=== PATIENT | female | born 1945 | race Caucasian/White ===

== ENCOUNTER 2020-04-19 12:37 | Inpatient (IN) ==
[2020-04-19] MEDS ORDERED: LACTATED RINGERS 1,000 ML IV ONE (13:28)
[2020-04-19 13:53] LABS: Basophils # 0.1 10*3/uL (0.0-0.2); Basophils % 0.3 % (0.0-0.8); Eosinophils # 0.1 10*3/uL (0.0-0.87); Eosinophils % 0.3 % (0.00-10.9); Hematocrit 28.8 VOL% (35.7-47.0); Immature Granulocytes % 1.7 %; Immature Granulocytes Absolute 0.34 #; Lymphocytes # 1.1 10*3/uL (1.4-4.0); Lymphocytes % 5.4 % (21.3-54.2); Mean Corpuscular HGB Conc 31.3 GM/DL (32-36); Mean Corpuscular Volume 98.6 FL (87-102); Mean Platelet Volume 9.5 FL (9.6-12.0); Neutrophils % 85.3 % (38.7-73.9); Platelet Count 353 T/CUMM (130-400); Red Blood Count 2.92 MC/CUMM (3.8-5.5); Red Cell Distribution Width 13.1 % (9.3-17.3); White Blood Count 20.5 T/CUMM (4-12)
[2020-04-19 14:17] LABS: Alanine Aminotransferase 29 U/L (13-56); Albumin 2.7 G/DL (3.4-5.0); Alkaline Phosphatase 141 U/L (45-117); Aspartate Amino Transferase 55 U/L (0-37); Bilirubin,Total < 0.39 MG/DL (0.2-1.0); Blood Urea Nitrogen 40 MG/DL (7-18); Calcium 8.5 MG/DL (8.5-10.1); Carbon Dioxide 19 MMOL/L (21-32); Estimated Glom Filtration Rate 15 ML/MIN; Glucose 85 MG/DL (74-106); Osmolality,Calculated 266.9 MOS/KG (273-304); Potassium 4.5 MMOL/L (3.5-5.1); Sodium 129 MMOL/L (136-145); Total Protein 7.1 G/DL (6.4-8.3)
[2020-04-19] MEDS ORDERED: LEVOFLOXACIN INJ 750 MG in PREMIX 1 EACH IV STA (14:24)
[2020-04-19 15:14] LABS: Bilirubin,Urine Negative (Negative); Blood, Urine Negative (Negative); Glucose,Urine (UA) Negative (Negative); Hyaline Casts,Urine 6 /LPF (0-3); Ketones,Urine 5 mg/dL (Negative); Mucus,Urine Occasional /LPF (Occasional); Nitrite,Urine Negative (Negative); Protein,Urine Negative; RBC,Urine <1 /HPF (0-4); Squamous Epithelial Cell,Urine Occasional /HPF (0-10); Urine Appearance Slightly Hazy (Clear); Urine Color Yellow (Yellow); Urine Specific Gravity 1.025 (1.001-1.035); Urine Urobilinogen < 2.0 EU/DL (0.2-1.0); WBC,Urine 1 /HPF (0-6)
[2020-04-19] MEDS ORDERED: DEXTROSE 50% 25 GM/50 ML VIAL IV PRN (15:40)
[2020-04-19] MEDS ORDERED: GLUCAGON 1 MG VIAL IM PRN (15:40)
[2020-04-19] MEDS ORDERED: HALOPERIDOL 5 MG/ML AMP IV STA (15:48)
[2020-04-19] MEDS ORDERED: WARFARIN 3 MG TABLET PO SCH (16:00)
[2020-04-19] MEDS ORDERED: ENOXAPARIN 30 MG/0.3 ML SYRINGE SUBCUT SCH (16:00)
[2020-04-19] MEDS ORDERED: ENOXAPARIN 30 MG/0.3 ML SYRINGE ONE (16:22)
[2020-04-19] MEDS: SODIUM CHLORIDE 0.9% 1,000 ML IV SCH (16:23)
[2020-04-19 16:27] LABS: PT Patient Result 94.4 SECS (9.8-11.9)
[2020-04-19 16:45] LABS: Lymphocytes 5 % (20-55); Segmented Neutrophils 92 % (50-85); Total Cells Counted 100
[2020-04-19] MEDS ORDERED: PHYTONADIONE 10 MG/1 ML AMP SUBCUT ONE (17:00)
[2020-04-19] MEDS: ACETAMINOPHEN 325 MG TABLET PO PRN ×2 (17:46→21:58)
[2020-04-19 18:33] LABS: Hematocrit 27.3 VOL% (35.7-47.0)
[2020-04-19] MEDS: rOPINIRole 1 MG TABLET PO SCH (21:23)
[2020-04-19] MEDS: AMITRIPTYLINE 75 MG TABLET PO SCH (21:23)
[2020-04-19] MEDS: PANTOPRAZOLE 40 MG TABLET PO SCH (21:23)
[2020-04-19] MEDS: METOPROLOL SUCCINATE XL 25 MG TABLET PO SCH (21:23)
[2020-04-19] MEDS: tiZANidine 4 MG TABLET PO SCH (21:24)
[2020-04-19 22:13] LABS: Hematocrit 26.7 VOL% (35.7-47.0); Hemoglobin 8.4 GM/DL (12.0-16.0)
[2020-04-19] MEDS: PIPERACILLIN/TAZOBACTAM 3,375 MG in SODIUM CHLORIDE 0.9% 100 ML IV SCH (22:21)
[2020-04-20] MEDS: SODIUM CHLORIDE 0.9% 1,000 ML IV SCH ×2 (05:58→19:35)
[2020-04-20] MEDS: ACETAMINOPHEN 325 MG TABLET PO PRN ×2 (05:59→21:53)
[2020-04-20 06:05] LABS: Basophils # 0.1 10*3/uL (0.0-0.2); Basophils % 0.2 % (0.0-0.8); Eosinophils % 0.1 % (0.00-10.9); Hematocrit 27.1 VOL% (35.7-47.0); Hemoglobin 8.3 GM/DL (12.0-16.0); Immature Granulocytes % 1.1 %; Immature Granulocytes Absolute 0.28 #; Lymphocytes # 1.1 10*3/uL (1.4-4.0); Lymphocytes % 4.4 % (21.3-54.2); Mean Corpuscular HGB Conc 30.6 GM/DL (32-36); Mean Corpuscular Volume 98.9 FL (87-102); Mean Platelet Volume 9.7 FL (9.6-12.0); Neutrophils % 86.2 % (38.7-73.9); Platelet Count 384 T/CUMM (130-400); Red Blood Count 2.74 MC/CUMM (3.8-5.5); Red Cell Distribution Width 13.4 % (9.3-17.3); White Blood Count 25.7 T/CUMM (4-12)
[2020-04-20 06:09] LABS: Hematocrit 25.8 VOL% (35.7-47.0); Hemoglobin 8.4 GM/DL (12.0-16.0)
[2020-04-20 06:30] LABS: Calcium 8.1 MG/DL (8.5-10.1); Osmolality,Calculated 272.4 MOS/KG (273-304); Potassium 4.1 MMOL/L (3.5-5.1)
[2020-04-20 06:32] LABS: Band Neutrophils 1 % (0-10); Hypochromasia Slight; Lymphocytes 5 % (20-55); Platelet Estimate Normal; Segmented Neutrophils 88 % (50-85); Total Cells Counted 100
[2020-04-20 07:54] LABS: INR 3.1; PT Patient Result 31.3 SECS (9.8-11.9)
[2020-04-20] MEDS: PIPERACILLIN/TAZOBACTAM 3,375 MG in SODIUM CHLORIDE 0.9% 100 ML IV SCH ×2 (09:44→22:03)
[2020-04-20] MEDS: tiZANidine 4 MG TABLET PO SCH ×2 (09:45→21:53)
[2020-04-20] MEDS: METOPROLOL SUCCINATE XL 25 MG TABLET PO SCH ×2 (09:45→21:52)
[2020-04-20] MEDS: PANTOPRAZOLE 40 MG TABLET PO SCH ×2 (09:45→21:52)
[2020-04-20] MEDS: AMITRIPTYLINE 75 MG TABLET PO SCH ×2 (09:46→21:51)
[2020-04-20] MEDS ORDERED: LOPERAMIDE 2 MG CAPSULE PO ONE (14:46)
[2020-04-20] MEDS ORDERED: LOPERAMIDE 2 MG CAPSULE PO PRN (14:46)
[2020-04-20] MEDS: ASPIRIN EC 81 MG TABLET PO SCH (15:17)
[2020-04-20] MEDS ORDERED: WARFARIN 4 MG TABLET PO SCH (15:35)
[2020-04-20] MEDS: rOPINIRole 1 MG TABLET PO SCH (21:52)
[2020-04-21] MEDS: VANCOMYCIN 50 MG/ML 60 ML/BOTTLE PO SCH ×4 (00:31→17:12)
[2020-04-21 07:52] LABS: Basophils # 0.1 10*3/uL (0.0-0.2); Basophils % 0.4 % (0.0-0.8); Eosinophils # 0.1 10*3/uL (0.0-0.87); Eosinophils % 0.5 % (0.00-10.9); Hemoglobin 8.6 GM/DL (12.0-16.0); Immature Granulocytes % 1.7 %; Immature Granulocytes Absolute 0.47 #; Lymphocytes # 1.4 10*3/uL (1.4-4.0); Mean Corpuscular HGB Conc 33.1 GM/DL (32-36); Mean Corpuscular Volume 93.9 FL (87-102); Mean Platelet Volume 9.4 FL (9.6-12.0); Monocytes % 7.2 % (1.7-12.7); Neutrophils % 85.2 % (38.7-73.9); Platelet Count 417 T/CUMM (130-400); Red Blood Count 2.77 MC/CUMM (3.8-5.5); Red Cell Distribution Width 13.5 % (9.3-17.3); White Blood Count 28.3 T/CUMM (4-12)
[2020-04-21 08:06] LABS: INR 1.3
[2020-04-21 08:11] LABS: Bilirubin,Total 0.9 MG/DL (0.2-1.0); Calcium 8.2 MG/DL (8.5-10.1); Osmolality,Calculated 280.7 MOS/KG (273-304); Potassium 3.5 MMOL/L (3.5-5.1); Risk Ratio 5.86; Total Protein 6.1 G/DL (6.4-8.3); VLDL CHOLESTEROL 29.6 MG/DL
[2020-04-21 08:26] LABS: Hypochromasia 1+; Lymphocytes 5 % (20-55); Microcytosis 1+; Platelet Estimate Adequate; Segmented Neutrophils 88 % (50-85); Total Cells Counted 100
[2020-04-21] MEDS: SODIUM CHLORIDE 0.9% 1,000 ML IV SCH ×3 (09:27→13:10)
[2020-04-21] MEDS: VANCOMYCIN INJ 1,000 MG in SODIUM CHLORIDE 0.9% 250 ML IV SCH (09:27)
[2020-04-21] MEDS: tiZANidine 4 MG TABLET PO SCH ×2 (09:28→20:27)
[2020-04-21] MEDS: ASPIRIN EC 81 MG TABLET PO SCH (09:28)
[2020-04-21] MEDS: AMITRIPTYLINE 75 MG TABLET PO SCH ×2 (09:28→20:27)
[2020-04-21] MEDS: PANTOPRAZOLE 40 MG TABLET PO SCH ×2 (09:28→20:27)
[2020-04-21] MEDS: METOPROLOL SUCCINATE XL 25 MG TABLET PO SCH ×2 (09:28→20:27)
[2020-04-21] MEDS: APIXABAN 5 MG TABLET PO SCH ×2 (10:35→20:28)
[2020-04-21] MEDS: ACETAMINOPHEN 325 MG TABLET PO PRN ×2 (10:35→14:44)
[2020-04-21] MEDS: PIPERACILLIN/TAZOBACTAM 3,375 MG in SODIUM CHLORIDE 0.9% 100 ML IV SCH ×2 (10:36→20:28)
[2020-04-21] MEDS: NYSTATIN 500,000 UNIT/5 ML UDCUP SWISH/SWAL SCH ×3 (13:10→20:27)
[2020-04-21] MEDS: oxyCODONE/ACETAMINOPHEN 5-325 MG TABLET PO PRN (17:15)
[2020-04-21] MEDS: rOPINIRole 1 MG TABLET PO SCH (20:28)
[2020-04-22] MEDS: VANCOMYCIN 50 MG/ML 60 ML/BOTTLE PO SCH ×4 (00:07→17:56)
[2020-04-22] MEDS: ACETAMINOPHEN 325 MG TABLET PO PRN ×2 (02:07→14:05)
[2020-04-22] MEDS: VANCOMYCIN INJ 1,000 MG in SODIUM CHLORIDE 0.9% 250 ML IV SCH (09:02)
[2020-04-22] MEDS: SODIUM CHLORIDE 0.9% 1,000 ML IV SCH (09:02)
[2020-04-22] MEDS: AMITRIPTYLINE 75 MG TABLET PO SCH ×2 (09:03→21:21)
[2020-04-22] MEDS: PANTOPRAZOLE 40 MG TABLET PO SCH ×2 (09:03→21:18)
[2020-04-22] MEDS: ASPIRIN EC 81 MG TABLET PO SCH ×2 (09:03→09:09)
[2020-04-22] MEDS: METOPROLOL SUCCINATE XL 25 MG TABLET PO SCH ×2 (09:04→21:18)
[2020-04-22] MEDS: NYSTATIN 500,000 UNIT/5 ML UDCUP SWISH/SWAL SCH ×4 (09:05→21:18)
[2020-04-22] MEDS: tiZANidine 4 MG TABLET PO SCH ×2 (09:05→21:18)
[2020-04-22] MEDS: APIXABAN 5 MG TABLET PO SCH ×2 (09:05→21:18)
[2020-04-22] MEDS: oxyCODONE/ACETAMINOPHEN 5-325 MG TABLET PO PRN ×2 (09:10→21:31)
[2020-04-22] MEDS: PIPERACILLIN/TAZOBACTAM 3,375 MG in SODIUM CHLORIDE 0.9% 100 ML IV SCH ×3 (10:07→21:22)
[2020-04-22] MEDS: rOPINIRole 1 MG TABLET PO SCH (21:18)
[2020-04-23] MEDS: VANCOMYCIN 50 MG/ML 60 ML/BOTTLE PO SCH ×4 (00:30→18:30)
[2020-04-23 05:27] LABS: Basophils % 0.3 % (0.0-0.8); Eosinophils # 0.2 10*3/uL (0.0-0.87); Eosinophils % 1.8 % (0.00-10.9); Hematocrit 25.8 VOL% (35.7-47.0); Hemoglobin 8.6 GM/DL (12.0-16.0); Immature Granulocytes % 2.2 %; Lymphocytes # 1.9 10*3/uL (1.4-4.0); Mean Corpuscular HGB Conc 33.3 GM/DL (32-36); Mean Corpuscular Volume 92.1 FL (87-102); Mean Platelet Volume 9.1 FL (9.6-12.0); Monocytes % 12.6 % (1.7-12.7); Neutrophils % 69.1 % (38.7-73.9); Platelet Count 483 T/CUMM (130-400); Red Cell Distribution Width 13.8 % (9.3-17.3); White Blood Count 13.6 T/CUMM (4-12)
[2020-04-23] MEDS: PIPERACILLIN/TAZOBACTAM 3,375 MG in SODIUM CHLORIDE 0.9% 100 ML IV SCH (05:35)
[2020-04-23 05:48] LABS: Calcium 8.3 MG/DL (8.5-10.1); Osmolality,Calculated 284.1 MOS/KG (273-304); Potassium 3.6 MMOL/L (3.5-5.1)
[2020-04-23] MEDS: oxyCODONE/ACETAMINOPHEN 5-325 MG TABLET PO PRN ×2 (08:20→16:59)
[2020-04-23] MEDS: ASPIRIN EC 81 MG TABLET PO SCH (10:17)
[2020-04-23] MEDS: PANTOPRAZOLE 40 MG TABLET PO SCH ×2 (10:17→20:38)
[2020-04-23] MEDS: tiZANidine 4 MG TABLET PO SCH ×2 (10:17→20:38)
[2020-04-23] MEDS: METOPROLOL SUCCINATE XL 25 MG TABLET PO SCH ×2 (10:17→20:38)
[2020-04-23] MEDS: APIXABAN 5 MG TABLET PO SCH ×2 (10:17→20:38)
[2020-04-23] MEDS: NYSTATIN 500,000 UNIT/5 ML UDCUP SWISH/SWAL SCH ×4 (10:17→20:38)
[2020-04-23] MEDS: AMITRIPTYLINE 75 MG TABLET PO SCH ×2 (10:17→20:38)
[2020-04-23] MEDS: VANCOMYCIN INJ 1,000 MG in SODIUM CHLORIDE 0.9% 250 ML IV SCH (10:18)
[2020-04-23] MEDS ORDERED: AMOXICILLIN/CLAV 875 MG TABLET PO SCH (13:00)
[2020-04-23] MEDS: SODIUM CHLORIDE 0.9% 1,000 ML IV SCH (13:42)
[2020-04-23] MEDS: LEVOFLOXACIN 500 MG TABLET PO SCH (14:23)
[2020-04-23 14:51] LABS: Osmolality, Serum 279 mOsm/kg (275 - 295)
[2020-04-23] MEDS ORDERED: MAGNESIUM SULF RIDER 2 GM in PREMIX 1 EACH IV ONE (15:00)
[2020-04-23 16:00] LABS: Osmolality, Urine 369 mOsm/kg (150 - 1150)
[2020-04-23] MEDS: ONDANSETRON 4 MG/2 ML VIAL IV PRN (17:22)
[2020-04-23] MEDS: rOPINIRole 1 MG TABLET PO SCH (20:41)
[2020-04-24] MEDS: ACETAMINOPHEN 325 MG TABLET PO PRN (01:00)
[2020-04-24] MEDS: VANCOMYCIN 50 MG/ML 60 ML/BOTTLE PO SCH ×4 (01:01→17:41)
[2020-04-24 06:54] LABS: Basophils # 0.1 10*3/uL (0.0-0.2); Basophils % 0.3 % (0.0-0.8); Eosinophils # 0.1 10*3/uL (0.0-0.87); Hematocrit 25.1 VOL% (35.7-47.0); Hemoglobin 8.4 GM/DL (12.0-16.0); Immature Granulocytes % 3.1 %; Immature Granulocytes Absolute 0.45 #; Lymphocytes # 1.8 10*3/uL (1.4-4.0); Lymphocytes % 12.5 % (21.3-54.2); Mean Corpuscular HGB Conc 33.5 GM/DL (32-36); Mean Corpuscular Volume 91.9 FL (87-102); Monocytes % 12.8 % (1.7-12.7); Neutrophils % 70.3 % (38.7-73.9); Platelet Count 529 T/CUMM (130-400); Red Blood Count 2.73 MC/CUMM (3.8-5.5); White Blood Count 14.3 T/CUMM (4-12)
[2020-04-24 07:18] LABS: Calcium 8.2 MG/DL (8.5-10.1); Osmolality,Calculated 277.4 MOS/KG (273-304); Potassium 3.1 MMOL/L (3.5-5.1)
[2020-04-24] MEDS: ASPIRIN EC 81 MG TABLET PO SCH (09:19)
[2020-04-24] MEDS: LEVOFLOXACIN 500 MG TABLET PO SCH (09:19)
[2020-04-24] MEDS: METOPROLOL SUCCINATE XL 25 MG TABLET PO SCH ×2 (09:19→20:32)
[2020-04-24] MEDS: metroNIDAZOLE 500 MG TABLET PO SCH ×3 (09:20→20:35)
[2020-04-24] MEDS: NYSTATIN 500,000 UNIT/5 ML UDCUP SWISH/SWAL SCH ×4 (09:20→20:31)
[2020-04-24] MEDS: PANTOPRAZOLE 40 MG TABLET PO SCH ×2 (09:20→20:32)
[2020-04-24] MEDS: APIXABAN 5 MG TABLET PO SCH ×2 (09:20→20:32)
[2020-04-24] MEDS: tiZANidine 4 MG TABLET PO SCH ×2 (09:20→20:32)
[2020-04-24] MEDS: AMITRIPTYLINE 75 MG TABLET PO SCH ×2 (09:21→20:35)
[2020-04-24] MEDS: oxyCODONE/ACETAMINOPHEN 5-325 MG TABLET PO PRN ×3 (09:25→20:32)
[2020-04-24] MEDS ORDERED: POTASSIUM CHLORIDE 20 MEQ TABLET PO ONE (11:00)
[2020-04-24] MEDS: rOPINIRole 1 MG TABLET PO SCH (20:32)
[2020-04-24] MEDS: ONDANSETRON 4 MG/2 ML VIAL IV PRN (20:33)
[2020-04-25] MEDS: VANCOMYCIN 50 MG/ML 60 ML/BOTTLE PO SCH ×3 (00:58→12:02)
[2020-04-25] MEDS: oxyCODONE/ACETAMINOPHEN 5-325 MG TABLET PO PRN (03:53)
[2020-04-25 05:40] LABS: Basophils % 0.3 % (0.0-0.8); Eosinophils # 0.1 10*3/uL (0.0-0.87); Eosinophils % 1.1 % (0.00-10.9); Hematocrit 24.2 VOL% (35.7-47.0); Hemoglobin 7.7 GM/DL (12.0-16.0); Immature Granulocytes % 4.8 %; Immature Granulocytes Absolute 0.58 #; Lymphocytes # 1.6 10*3/uL (1.4-4.0); Lymphocytes % 13.3 % (21.3-54.2); Mean Corpuscular HGB Conc 31.8 GM/DL (32-36); Mean Corpuscular Volume 93.4 FL (87-102); Mean Platelet Volume 8.8 FL (9.6-12.0); Monocytes % 11.1 % (1.7-12.7); Neutrophils % 69.4 % (38.7-73.9); Platelet Count 541 T/CUMM (130-400); Red Blood Count 2.59 MC/CUMM (3.8-5.5); Red Cell Distribution Width 13.9 % (9.3-17.3); White Blood Count 12.1 T/CUMM (4-12)
[2020-04-25 06:01] LABS: Calcium 8.1 MG/DL (8.5-10.1); Osmolality,Calculated 273.7 MOS/KG (273-304); Potassium 3.5 MMOL/L (3.5-5.1)
[2020-04-25 06:05] LABS: Band Neutrophils 2 % (0-10); Hypochromasia 1+; Lymphocytes 12 % (20-55); Segmented Neutrophils 78 % (50-85); Total Cells Counted 100
[2020-04-25 06:06] LABS: Microcytosis 1+; Platelet Estimate Increased
[2020-04-25 08:15] VITALS: BP 150/63
[2020-04-25] MEDS: ASPIRIN EC 81 MG TABLET PO SCH (09:06)
[2020-04-25] MEDS: LEVOFLOXACIN 500 MG TABLET PO SCH (09:06)
[2020-04-25] MEDS: APIXABAN 5 MG TABLET PO SCH (09:06)
[2020-04-25] MEDS: metroNIDAZOLE 500 MG TABLET PO SCH (09:07)
[2020-04-25] MEDS: METOPROLOL SUCCINATE XL 25 MG TABLET PO SCH (09:07)
[2020-04-25] MEDS: NYSTATIN 500,000 UNIT/5 ML UDCUP SWISH/SWAL SCH (09:07)
[2020-04-25] MEDS: tiZANidine 4 MG TABLET PO SCH (09:07)
[2020-04-25] MEDS: PANTOPRAZOLE 40 MG TABLET PO SCH (09:07)
[2020-04-25] MEDS: AMITRIPTYLINE 75 MG TABLET PO SCH (09:08)
== END 2020-04-25 12:01 | disposition home or self-care (01) | DRG 682 ==
LOC: N.ED 12:37 → N.EDINP 15:40 → N.5E 16:23
PROVIDERS: ADMIT Internal Medicine; ATTEND Internal Medicine